=== PATIENT | female | born 1955 | race Caucasian/White ===

== ENCOUNTER 2017-03-22 13:05 | Emergency (ER) | payer OTHER ==
[~2017-03-22 13:05] MED LIST: ALBUTEROL17 GM INH; AMITRYPTYLINE PO; ASPIRIN PO; ASPIRIN81 MG PO; ASPIRINEC PO; ATARAX PO; ATIVAN PO; BACTRIM 400-801 TA1 PO; BACTRIM DS PO; BLOOD PRESSURE MED; BUSPAR PO; CELEXA PO; CLEOCIN HCL300 M1 PO; FLEXERIL PO; FLEXERIL10 MG PO; GLUCOTROL PO; GLUCOTROL XL PO; GLUCOVANCE PO; INVOKANA100 MG; LANTUS100 U/ML SUBQ; LISINOPRIL PO; LISINOPRIL5 MG PO; LORTAB 5/500 TA1 TA1 PO; LORTAB 5/500 TA1 TA2 PO; MEDROL PO; METFORMIN PO; MUCINEX DM1 TAB.SR . PO; NAPROXEN PO; NO MEDICATIONS; OMEPRAZOLE20 M2 PO; PAXIL PO; PAXIL40 MG PO; PENICILLIN PO; PREDNISONE PO; SYMBICORT80; VICODIN PO; VOLTAREN75 MG PO
== END 2017-03-22 13:25 | disposition home or self-care (01) ==
LOC: SED 13:05
DX: J06.9 Acute upper respiratory infection, unspecified (principal); H65.93 Unspecified nonsuppurative otitis media, bilateral; E11.9 Type 2 diabetes mellitus without complications; J44.9 Chronic obstructive pulmonary disease, unspecified; I10 Essential (primary) hypertension; K21.9 Gastro-esophageal reflux disease without esophagitis; F41.9 Anxiety disorder, unspecified; F17.210 Nicotine dependence, cigarettes, uncomplicated; Z98.890 Other specified postprocedural states; Z79.82 Long term (current) use of aspirin; Z79.4 Long term (current) use of insulin; Z79.899 Other long term (current) drug therapy
CPT/HCPCS: 87651; 99283